=== PATIENT | female | born 1960 | race Caucasian/White ===

== ENCOUNTER 2017-10-03 00:29 | Emergency (ER) | payer BC ==
[~2017-10-03] VITALS: Ht 165.1 cm; Wt 65.8 kg
--- NOTE | 2017-10-03 00:48 | NUR ---
ER MD at bedside for patient evaluation
[2017-10-03] MEDS ORDERED: LEXAPRO (00:49)
[2017-10-03 01:08] VITALS: BP 126/72
--- NOTE | 2017-10-03 01:08 | NUR ---
Patient discharged to home in stable conditon. Written and verbal after care instructions given. Patient verbalizes understanding of instructions. Ambulated from ER with stable gait. All belongings with patient.
== END 2017-10-03 01:09 | disposition home or self-care (01) ==
LOC: ER 00:31
DX: S00.03XA Contusion of scalp, initial encounter (principal); Z88.6 Allergy status to analgesic agent; Z79.899 Other long term (current) drug therapy; W22.8XXA Striking against or struck by other objects, initial encounter; Y93.89 Activity, other specified; Y92.89 Other specified places as the place of occurrence of the external cause; Y99.8 Other external cause status
CPT/HCPCS: A4663